=== PATIENT | male | born 1965 | race Caucasian/White ===

== ENCOUNTER 2017-02-18 11:17 | Outpatient (CLI) | payer OTHER ==
--- NOTE | 2017-02-18 11:38 | DIAGNOSTIC IMAGING REPORT ---
PROCEDURE: XR CHEST 2 VIEW INDICATION: CHEST PAIN TECHNIQUE: PA and lateral views. COMPARISON: None. FINDINGS: Lungs are clear. Heart and mediastinum are normal. Thorax is normal. IMPRESSION: 1. Negative chest.
== END 2017-02-18 23:00 ==
LOC: IMAGING SR 11:17
DX: R07.9 Chest pain, unspecified (principal)